=== PATIENT | male | born 1955 | race Caucasian/White ===

== ENCOUNTER 2022-06-28 18:50 | Emergency (ER) | payer MEDICARE ==
[2022-06-28] MEDS ORDERED: Lidocaine 1% (PF) 30 ML VIAL ONE (19:36)
[2022-06-28] MEDS ORDERED: Boostrix 0.5 ML (Tdap) VIAL (>/=7 yrs of age) ONE (19:38)
== END 2022-06-28 20:04 | disposition home or self-care (01) ==
LOC: CSHERS 18:50
DX: L03.011 Cellulitis of right finger (principal); I10 Essential (primary) hypertension; F17.210 Nicotine dependence, cigarettes, uncomplicated; Z23 Encounter for immunization
CPT/HCPCS: 26011; 90471; 90715; J2001

== ENCOUNTER 2024-07-25 18:42 | Inpatient (IN) | payer MEDICARE ==
[2024-07-25] MEDS ORDERED: CEFAZOLIN 2 GM VIAL ONE (19:43)
[2024-07-25 20:18] LABS: #Basophils 0.04 10x3/uL (0.0-0.2); #Eosinophils 0.22 10x3/uL (0.0-0.5); #Monocytes 0.61 10x3/uL (0.0-1.1); #Neutrophils 5.17 10x3/uL (1.5-8.4); %Basophils 0.5 % (0.0-2.0); %Eosinophils 2.8 % (0.0-6.0); %Lymphocytes 23.2 % (18.0-47.0); %Monocytes 7.7 % (0.0-10.0); %Neutrophils 65.5 % (40.0-75.0); Hematocrit 39.4 % (38.8-50.0); Hemoglobin 12.9 g/dL (13.5-17.5); Mean Corpuscular HGB CONC 32.7 g/dL (32.0-36.0); Mean Corpuscular Hemoglobin 30.5 pg (27.0-33.0); Mean Corpuscular Volume 93.1 fL (81.2-95.1); Mean Platelet Volume 8.8 fL (7.4-10.4); Platelet Count 208 10x3/uL (150-450); RBC Distribution Width 13.4 % (11.5-14.5); Red Blood Cell (RBC) Count 4.23 10x6/uL (4.32-5.72); White Blood Cell (WBC) Count 7.9 10x3/uL (3.5-10.5)
[2024-07-25 20:30] LABS: ALT (SGPT) 10 U/L (8-55); AST (SGOT) 13 U/L (5-34); Albumin 3.9 g/dL (3.4-4.8); Alkaline Phosphatase 84 U/L (40-110); Anion Gap 14 mmol/L (10-20); BUN (Urea Nitrogen) 12 mg/dL (8.4-25.7); Bilirubin, Total 0.6 mg/dL (0.2-1.2); Calc. Creatinine Clearance 0 mL/min (70-130); Calcium 9.3 mg/dL (7.8-10.44); Carbon Dioxide 25 mmol/L (23-31); Chloride 106 mmol/L (98-107); Estimated GFR 88; Globulin 3.3 g/dL (2.4-3.5); Glucose 111 mg/dL (80-115); Potassium 3.9 mmol/L (3.5-5.1); Protein, Total 7.2 g/dL (5.8-8.1); Sodium 141 mmol/L (136-145)
[2024-07-25 20:36] LABS: Troponin I Less than 0.010 ng/mL (< 0.028)
[2024-07-25 20:58] LABS: Magnesium 2.2 mg/dL (1.6-2.6)
[2024-07-25] MEDS: Enoxaparin 40 MG (0.4 mL) SYRINGE SC SCH (21:59)
[2024-07-25] MEDS: Nicotine 14 MG PATCH TOP SCH (21:59)
[2024-07-25] MEDS: 1/2 NS w/Potassium 20 mEq 1,000 ML IV SCH (22:00)
[2024-07-25] MEDS: Tamsulosin HCl 0.4 MG CAP PO SCH (22:00)
[2024-07-25 22:11] VITALS: BMI 27.0
[2024-07-26 03:39] LABS: #Basophils 0.05 10x3/uL (0.0-0.2); #Eosinophils 0.31 10x3/uL (0.0-0.5); #Monocytes 0.74 10x3/uL (0.0-1.1); #Neutrophils 5.37 10x3/uL (1.5-8.4); %Basophils 0.6 % (0.0-2.0); %Eosinophils 3.7 % (0.0-6.0); %Lymphocytes 22.1 % (18.0-47.0); %Monocytes 8.9 % (0.0-10.0); %Neutrophils 64.3 % (40.0-75.0); Hematocrit 40.2 % (38.8-50.0); Hemoglobin 12.9 g/dL (13.5-17.5); Mean Corpuscular HGB CONC 32.1 g/dL (32.0-36.0); Mean Corpuscular Hemoglobin 29.9 pg (27.0-33.0); Mean Corpuscular Volume 93.1 fL (81.2-95.1); Mean Platelet Volume 8.8 fL (7.4-10.4); Platelet Count 190 10x3/uL (150-450); RBC Distribution Width 13.2 % (11.5-14.5); Red Blood Cell (RBC) Count 4.32 10x6/uL (4.32-5.72); White Blood Cell (WBC) Count 8.3 10x3/uL (3.5-10.5)
[2024-07-26 03:53] LABS: Anion Gap 10 mmol/L (10-20); BUN (Urea Nitrogen) 13 mg/dL (8.4-25.7); Calc. Creatinine Clearance 91 mL/min (70-130); Carbon Dioxide 25 mmol/L (23-31); Chloride 109 mmol/L (98-107); Estimated GFR 92; Glucose 95 mg/dL (80-115); Potassium 4.1 mmol/L (3.5-5.1); Sodium 140 mmol/L (136-145)
[2024-07-26] MEDS: CEFAZOLIN 2 GM in Sodium Chloride 0.9% 100 ML IVPB SCH (04:01)
[2024-07-26] MEDS ORDERED: Midazolam HCl 2 mg/2 ml Vial ONE ×3 (11:50→13:12)
[2024-07-26] MEDS ORDERED: fentaNYL 50 mcg/mL 1 mL Vial ONE ×3 (11:50→13:12)
[2024-07-26] MEDS ORDERED: Gentamicin 80 MG/2 ML VIAL ONE (11:52)
[2024-07-26] MEDS ORDERED: CEFAZOLIN 1 GM VIAL ONE (11:52)
[2024-07-26] MEDS ORDERED: Lidocaine 1% (PF) 30 ML VIAL ONE (11:53)
[2024-07-26] MEDS: cefTRIAXone\\ROCEPHIN 1 GM in Sodium Chloride 0.9% 100 ML IVPB SCH (14:47)
[2024-07-26] MEDS: Enoxaparin 40 MG (0.4 mL) SYRINGE SC SCH (20:24)
[2024-07-26] MEDS: Acetaminophen 325 MG TAB PO PRN (20:25)
[2024-07-26] MEDS: Tamsulosin HCl 0.4 MG CAP PO SCH (20:25)
[2024-07-26] MEDS: Nicotine 14 MG PATCH TD SCH (20:25)
[2024-07-27 13:16] VITALS: BP 119/72; TEMP 98.7
== END 2024-07-27 14:38 | disposition home or self-care (01) | DRG 261 ==
LOC: CSHERS 18:42 → CSHTELE 20:18
PROVIDERS: ADMIT Family Medicine; ATTEND Hospitalist
PROC: 0JPT0PZ Removal of Cardiac Rhythm Related Device from Trunk Subcutaneous Tissue and Fascia, Open Approach (ICD-10-PCS; principal; 2024-07-26)
PROC: 02PA3MZ Removal of Cardiac Lead from Heart, Percutaneous Approach (ICD-10-PCS; 2024-07-26)
DX: T82.7XXA Infection and inflammatory reaction due to other cardiac and vascular devices, implants and grafts, initial encounter (principal); L03.313 Cellulitis of chest wall; Z98.890 Other specified postprocedural states; F41.9 Anxiety disorder, unspecified; F32.A Depression, unspecified; F17.210 Nicotine dependence, cigarettes, uncomplicated; N40.0 Benign prostatic hyperplasia without lower urinary tract symptoms; Z79.899 Other long term (current) drug therapy; I49.5 Sick sinus syndrome
CPT/HCPCS: 33233; 33235; 36415; 71045; 80048; 80053; 83735; 84484; 85025; 87040; 87070; 87077; 87186; 87205; 93005; 93306; 96374; 99152; 99153; J0690; J0696; J1580; J1650; J2250; J3010; J3480

== ENCOUNTER 2024-07-28 16:33 | Emergency (ER) | payer MEDICARE ==
[2024-07-28] MEDS ORDERED: Vancomycin 1 GM VIAL ONE (18:50)
[2024-07-28 20:16] LABS: #Basophils 0.05 10x3/uL (0.0-0.2); #Eosinophils 0.32 10x3/uL (0.0-0.5); #Monocytes 0.62 10x3/uL (0.0-1.1); #Neutrophils 5.18 10x3/uL (1.5-8.4); %Basophils 0.6 % (0.0-2.0); %Eosinophils 3.9 % (0.0-6.0); %Lymphocytes 23.9 % (18.0-47.0); %Monocytes 7.6 % (0.0-10.0); %Neutrophils 63.6 % (40.0-75.0); Hematocrit 38.8 % (38.8-50.0); Hemoglobin 12.4 g/dL (13.5-17.5); Mean Corpuscular Hemoglobin 29.9 pg (27.0-33.0); Mean Corpuscular Volume 93.5 fL (81.2-95.1); Mean Platelet Volume 8.6 fL (7.4-10.4); Platelet Count 200 10x3/uL (150-450); RBC Distribution Width 13.4 % (11.5-14.5); Red Blood Cell (RBC) Count 4.15 10x6/uL (4.32-5.72); White Blood Cell (WBC) Count 8.2 10x3/uL (3.5-10.5)
[2024-07-28 20:27] LABS: Anion Gap 13 mmol/L (10-20); BUN (Urea Nitrogen) 14 mg/dL (8.4-25.7); Calc. Creatinine Clearance 0 mL/min (70-130); Calcium 9.4 mg/dL (7.8-10.44); Carbon Dioxide 25 mmol/L (23-31); Chloride 105 mmol/L (98-107); Estimated GFR 85; Glucose 101 mg/dL (80-115); Potassium 4.1 mmol/L (3.5-5.1); Sodium 139 mmol/L (136-145)
== END 2024-07-28 20:55 | disposition home or self-care (01) ==
LOC: CSHERS 16:33
DX: T82.7XXA Infection and inflammatory reaction due to other cardiac and vascular devices, implants and grafts, initial encounter (principal); L03.313 Cellulitis of chest wall; I50.9 Heart failure, unspecified; F17.210 Nicotine dependence, cigarettes, uncomplicated
CPT/HCPCS: 80048; 85025; 96374; 99283; J3370; 36415